=== PATIENT | male | born 1995 | race Caucasian/White ===

== ENCOUNTER 2018-12-20 14:36 | Emergency (ER) | payer OTHER ==
[~2018-12-20] VITALS: Ht 170.2 cm; Wt 51.4 kg
[2018-12-20 14:39] VITALS: BP 141/64; PULSE 75; RESP 20; Ht 170.2 cm; Wt 51.4 kg
[2018-12-20] MEDS ORDERED: IBUPROFEN 200 MG TAB PO ONE (16:30)
--- NOTE | 2018-12-20 16:54 | ERD ---
ER Documentation Chief Complaint Chief Complaint Complains of neck pain x 2 days HPI 23-year-old male presents due to complaint of neck discomfort due to box falling on his neck at work yesterday. States the pain feels like a roughness. Took one ibuprofen last night. Denies any headaches, complaints, tingling, decreased range of motion. Denies past medical history. Denies allergies. Denies medications. Denies surgeries. Denies alcohol, tobacco, drug use. Up to date on vaccines. ROS All systems reviewed and are negative except as per history of present illness. Medications Home Meds Active Scripts Ibuprofen* (Motrin*) 400 Mg Tab, 400 MG PO Q6 for pain, #30 TAB Prov:ADOLFO DOSHI 12/20/18 Allergies Allergies: Coded Allergies: No Known Allergy (Unverified , 12/20/18) PMhx/Soc Medical and Surgical Hx: pt denies Medical Hx, pt denies Surgical Hx Hx Alcohol Use: No Hx Substance Use: No Hx Tobacco Use: No Smoking Status: Never smoker FmHx Family History: No diabetes, No coronary disease, No other Physical Exam Vitals Vital Signs Date Temp Pulse Resp B/P (MAP) Pulse Ox O2 O2 Flow FiO2 Time Delivery Rate 12/20/18 97.0 75 20 141/64 100 14:39 (89) Physical Exam Const: No acute distress Head: Atraumatic Eyes: Normal Conjunctiva ENT: Normal External Ears, Nose and Mouth. Neck: Full range of motion. No meningismus. Resp: Clear to auscultation bilaterally Cardio: Regular rate and rhythm, no murmurs Abd: Soft, non tender, non distended. Normal bowel sounds Skin: No petechiae or rashes Neck: No midline tenderness. No bony deformities, masses, lesions noted. Full range of motion. Ext: No cyanosis, or edema. 5/5 strength in all extremities. Distal sensation and pulses intact. Neur: Awake and alert. CN 1 through 12 intact. Psych: Normal Mood and Affect Results 24 hrs Current Medications Medications Dose Sig/Sumit Start Time Status Last (Trade) Ordered Route PRN Stop Time Admin Dose Reason Admin Ibuprofen 400 mg ONCE ONCE 12/20/18 DC 12/20/18 (Motrin) PO 16:30 12/20/18 16:34 16:31 Procedures/MDM DIAGNOSTIC IMAGING REPORT Patient: KASPERYELENA SNEED : 1995 Age: 23 Sex: M MR #: [id number] DOS: 12/20/18 1630 Ordering MD: ADOLFO DOSHI Location: [facility] Room/Bed: PROCEDURE: XR Cervical Spine. CLINICAL INDICATION: Neck pain. Trauma TECHNIQUE: AP, lateral, and open mouth views of the cervical spine were obtained. COMPARISON: None FINDINGS: The cervical lordosis is slightly reversed. The vertebral body and disk space heights are normal. No acute fracture or subluxation is seen. The atlantoaxial joint, odontoid process, and lateral masses are intact. No prevertebral soft tissue abnormality is seen. IMPRESSION: No radiographic evidence for an acute fracture or subluxation. If clinical concern for a cervical spine fracture persist, a CT of the cervical spine is recommended. RPTAT: HPNM Physician Yaya Date Time Electronically viewed and signed by Cezar Whitehead Physician on 12/20/2018 17:31 / CC: ADOLFO DOSHI [phone] 23-year-old male presents due to complaint of neck discomfort due to box falling on his neck at work yesterday. States the pain feels like a roughness. Took one ibuprofen last night. Denies any headaches, complaints, tingling, decreased range of motion. Denies past medical history. Denies allergies. Denies medications. Denies surgeries. Denies alcohol, tobacco, drug use. Up to date on vaccines. Due to mechanism of injury, neck XR was performed. Results within normal limits. In addition, patients PE was WNL and patient had no signs or symptoms or neurological compromise. Therefore I have low suspicion for neck fracture, head trauma, intracranial bleed, or any neurovascular deficit. Patient discharged with Rx for ibuprofen. Patient discharged with strict ER precautions. Patient advised to follow up with PMD. All questions answered at discharge. Departure Diagnosis: Primary Impression: Neck pain Additional Impression: Injury of neck Encounter type: initial encounter Qualified Codes: S19.9XXA - Unspecified injury of neck, initial encounter Condition: Stable ADOLFO DOSHI Dec 20, 2018 16:54
[2018-12-20] MEDS ORDERED: IBUP-1561 PO (17:21)
== END 2018-12-20 18:06 | disposition home or self-care (01) ==
LOC: FTE 14:36
DX: S19.9XXA Unspecified injury of neck, initial encounter (principal); W20.8XXA Other cause of strike by thrown, projected or falling object, initial encounter; Y92.9 Unspecified place or not applicable
CPT/HCPCS: 72050